=== PATIENT | male | born 1965 | race African-American/Black ===

== ENCOUNTER 2017-01-18 04:34 | Emergency (ER) | payer MEDICARE, OTHER ==
[2017-01-18 05:14] LABS: BASOPHIL 0.2 % (0-2); EOSINOPHIL 0.7 % (0-5); HCT 29.4 % (42.0-52.0); HGB 9.5 g/dl (13.2-18.0); MCH 28.5 pg (25.0-31.0); MCHC 32.3 g/dL (32.0-36.0); MCV 88.3 fL (78.0-100.0); MONOCYTE 4.6 % (0-12); NEUTROPHIL 87.5 % (41-80); PLT 413 K/uL (150-400); RBC 3.33 M/uL (4.70-6.00); RDW 17.6 % (11.5-14.0)
[2017-01-18 05:16] LABS: WBC 18.2 K/uL (4.0-10.5)
[2017-01-18 05:27] LABS: POTASSIUM 4.3 mmol/L (3.5-5.1)
[2017-01-18 05:30] LABS: LACTIC ACID 1.8 mmol/L (0.5-2.2)
[2017-01-18 05:51] LABS: CREATININE 12.3 mg/dL (0.7-1.2)
[2017-01-18 05:52] LABS: PRO-BNP > 35000 pg/mL (0-125)
[2017-01-18 11:26] LABS: BILIRUBIN NEGATIVE (NEGATIVE); BLOOD 1+ Ery/uL (NEGATIVE); CLARITY CLEAR (CLEAR); COLOR YELLOW (YELLOW); GLUCOSE (U) 2+ mg/dL (NORMAL); KETONE (U) NEGATIVE (NEGATIVE); LEUKOCYTES NEGATIVE Leu/uL (NEGATIVE); NITRITE NEGATIVE (NEGATIVE); PROTEIN 2+ mg/dL (NEGATIVE); UROBILINOGEN 0.2 mg/dL (0.2-1.0)
[2017-01-18 11:49] LABS: URINARY WBC RARE
== END 2017-01-18 11:26 | disposition other institution (70) ==
LOC: FER 04:34
PROVIDERS: Emergency Medicine
DX: I50.9 Heart failure, unspecified (principal); J18.9 Pneumonia, unspecified organism; R79.89 Other specified abnormal findings of blood chemistry; I25.10 Atherosclerotic heart disease of native coronary artery without angina pectoris; N18.6 End stage renal disease; Z95.5 Presence of coronary angioplasty implant and graft; Z99.2 Dependence on renal dialysis
CPT/HCPCS: 36415; 36600; 71010; 80048; 81001; 82803; 83605; 83880; 84484; 85025; 87040; 87804; 87899; 93005; 94760; 96372; J2405; J2543

== ENCOUNTER 2017-02-01 18:49 | Emergency (ER) | payer MEDICARE, OTHER ==
[2017-02-01 19:36] LABS: BASOPHIL 0.3 % (0-2); EOSINOPHIL 1.3 % (0-5); HCT 29.5 % (42.0-52.0); HGB 9.4 g/dl (13.2-18.0); LYMPHOCYTE 9.1 % (15-48); MCH 27.2 pg (25.0-31.0); MCHC 31.9 g/dL (32.0-36.0); MCV 85.5 fL (78.0-100.0); MONOCYTE 8.3 % (0-12); MPV 10.7 fL (6.0-9.5); PLT 575 K/uL (150-400); RBC 3.45 M/uL (4.70-6.00); RDW 18.1 % (11.5-14.0); WBC 18.2 K/uL (4.0-10.5)
[2017-02-01 19:41] LABS: INR 1.19 (0.9-1.2); PROTHROMBIN TIME 14.7 SECONDS (11.7-14.0); PTT 26.3 SECONDS (23.2-31.4)
[2017-02-01 19:49] LABS: ALBUMIN 3.5 g/dL (3.5-5.0); BILIRUBIN - TOTAL 0.3 mg/dL (0.1-1.0); GLOBULIN (CALCULATION) 3.4 g/dL (2.2-4.2); POTASSIUM 5.1 mmol/L (3.5-5.1); TOTAL PROTEIN 6.9 g/dL (6.4-8.3)
[2017-02-01 19:53] LABS: CREATININE 11.9 mg/dL (0.7-1.2); PRO-BNP > 35000 pg/mL (0-125); TROPONIN T 0.231 ng/mL
[2017-02-01 19:55] LABS: BILIRUBIN NEGATIVE (NEGATIVE); BLOOD 1+ Ery/uL (NEGATIVE); CLARITY CLEAR (CLEAR); COLOR COLORLESS (YELLOW); GLUCOSE (U) 2+ mg/dL (NORMAL); KETONE (U) NEGATIVE (NEGATIVE); LEUKOCYTES NEGATIVE Leu/uL (NEGATIVE); NITRITE NEGATIVE (NEGATIVE); PROTEIN 2+ mg/dL (NEGATIVE); SPECIFIC GRAVITY 1.015 (1.001-1.030); UROBILINOGEN 0.2 mg/dL (0.2-1.0); pH 7.5 (5.0-9.0)
[2017-02-01 20:10] LABS: BACTERIA TRACE; MUCOUS TRACE; SQUAMOUS EPITHELIAL CELLS RARE
[2017-02-01 20:11] LABS: SPERM PRESENT
== END 2017-02-01 21:10 | disposition other institution (70) ==
LOC: FER 18:49
PROVIDERS: Emergency Medicine
DX: A41.9 Sepsis, unspecified organism (principal); J18.9 Pneumonia, unspecified organism; R65.20 Severe sepsis without septic shock; J96.01 Acute respiratory failure with hypoxia; I46.8 Cardiac arrest due to other underlying condition; R82.90 Unspecified abnormal findings in urine; I12.0 Hypertensive chronic kidney disease with stage 5 chronic kidney disease or end stage renal disease; E11.22 Type 2 diabetes mellitus with diabetic chronic kidney disease; N18.6 End stage renal disease; E78.5 Hyperlipidemia, unspecified; Z88.1 Allergy status to other antibiotic agents; Z99.2 Dependence on renal dialysis
CPT/HCPCS: 31500; 36415; 36600; 71010; 80053; 81001; 82803; 83880; 84484; 85025; 85610; 85730; 87040; 87070; 87088; 87205; 87804; 87899; 92950; 93005; 94640; 94770; J0282; J0461; J0610; J2405; J2543; J2704; J3010